=== PATIENT | female | born 1930 | race Caucasian/White ===

== ENCOUNTER 2017-08-26 17:40 | Inpatient (IN) | payer MEDICARE, BC ==
[~2017-08-26] VITALS: Ht 149.9 cm; Wt 59.2 kg
[2017-08-26] MEDS ORDERED: eye drops (17:56)
[2017-08-26] MEDS ORDERED: LISI40TA PO (17:56)
[2017-08-26] MEDS ORDERED: ONDANSETRON ODT 4 MG ONE (18:21)
[2017-08-26] MEDS ORDERED: ONDANSETRON ODT 4 MG PO ONE (18:30)
[2017-08-26 18:54] LABS: ALBUMIN 3.5 g/dL (3.4-5.0); ANION GAP 9 mmol/L (5-15); CALCIUM 8.7 mg/dL (8.5-10.1); CHLORIDE 109 mmol/L (98-107); CREATININE 1.87 mg/dL (0.55-1.02)
[2017-08-26 18:55] LABS: MEAN CORPUSCULAR HEMOGLOBIN 29.3 pg (27.0-34.8); MEAN CORPUSCULAR HGB CONC 33.6 g/dL (32.4-35.8); MEAN CORPUSCULAR VOLUME 87.3 fL (80-100); MEAN PLATELET VOLUME 8.1 fL (7.4-10.4); PLATELET COUNT 380 x10^3/uL (130-400); RED BLOOD COUNT 3.77 x10^6/uL (3.82-5.3); RED CELL DISTRIBUTION WIDTH 13.2 % (9.6-15.2)
[2017-08-26 19:17] LABS: BASOPHILS # (AUTO) 0.09 x10^3/uL (0-0.1); BASOPHILS % (AUTO) 0 % (0-1); EOSINOPHILS # (AUTO) 0.01 x10^3/uL (0-0.4); EOSINOPHILS % (AUTO) 0 % (1-7); LYMPHOCYTES # (AUTO) 0.48 x10^3/uL (1-3.4); LYMPHOCYTES % (AUTO) 2 % (22-44); MD SCAN; MONOCYTES # (AUTO) 1.03 x10^3/uL (0.2-0.8); MONOCYTES % (AUTO) 5 % (2-9); NEUTROPHILS # (AUTO) 21.44 x10^3/uL (1.8-6.8); NEUTROPHILS % (AUTO) 93 % (42-75)
[2017-08-26 19:42] LABS: MICROSCOPIC AUTO
[2017-08-26 19:44] LABS: CULTURE INDICATED? YES
[2017-08-26] MEDS ORDERED: CEFTRIAXONE PMX 1GM/50ML 50 ML IV ONE (20:00)
[2017-08-26] MEDS ORDERED: CEFTRIAXONE PMX 1GM/50ML 50 ML ONE (20:31)
[2017-08-27] MEDS ORDERED: morphine SULFATE 10 MG/ML, 1ML IVPush PRN (02:00)
[2017-08-27] MEDS ORDERED: BISACODYL 10 MG SUPP PR PRN (02:00)
[2017-08-27] MEDS ORDERED: CEFTRIAXONE PMX 1GM/50ML 50 ML IV ONE (02:00)
[2017-08-27] MEDS ORDERED: ONDANSETRON ODT 4 MG PO PRN (02:00)
[2017-08-27] MEDS ORDERED: ACETAMINOPHEN 325 MG TABLET PO PRN (02:00)
[2017-08-27] MEDS ORDERED: OXYcodone IR 5MG TABLET PO PRN (02:00)
[2017-08-27] MEDS ORDERED: ONDANSETRON 2MG/ML, 2ML IVPush PRN (02:00)
[2017-08-27] MEDS ORDERED: hydrALAzine 20 MG/ML, 1ML IVPush PRN (02:00)
[2017-08-27] MEDS ORDERED: DOCUSATE 100 MG CAPSULE PO PRN (02:00)
[2017-08-27] MEDS ORDERED: POLYETHYLENE GLYCOL 17 GM PACKET PO PRN (02:00)
[2017-08-27] MEDS ORDERED: PROMETHAZINE 25 MG/ML, 1ML IM PRN (02:00)
[2017-08-27] MEDS: HEPARIN 5,000 UNITS/ML, 1ML SQ SCH ×3 (02:10→17:56)
[2017-08-27] MEDS: SODIUM CHLORIDE 0.9% 1,000 ML IV SCH ×2 (02:10→11:44)
[2017-08-27 02:21] VITALS: BP 92/53
[2017-08-27 02:41] LABS: FREE T4 (FREE THYROXINE) 1.27 ng/dL (0.76-1.46); THYROID STIMULATING HORMONE 0.948 mIU/L (0.358-3.740)
[2017-08-27 02:45] LABS: HEMOGLOBIN A1C 5.5 % (4.2-6.3)
[2017-08-27 04:38] VITALS: BP 102/47
[2017-08-27 05:26] LABS: MEAN CORPUSCULAR HEMOGLOBIN 29.4 pg (27.0-34.8); MEAN CORPUSCULAR HGB CONC 33.3 g/dL (32.4-35.8); MEAN CORPUSCULAR VOLUME 88.2 fL (80-100); MEAN PLATELET VOLUME 7.9 fL (7.4-10.4); PLATELET COUNT 323 x10^3/uL (130-400); RED BLOOD COUNT 3.45 x10^6/uL (3.82-5.3); RED CELL DISTRIBUTION WIDTH 13.6 % (9.6-15.2)
[2017-08-27 05:37] LABS: ALANINE AMINOTRANSFERASE 11 U/L (12-78); ALBUMIN 2.9 g/dL (3.4-5.0); ANION GAP 10 mmol/L (5-15); CALCIUM 9.1 mg/dL (8.5-10.1); CHLORIDE 110 mmol/L (98-107); CHOLESTEROL, TOTAL 104 mg/dL (140-239); CREATININE 2.01 mg/dL (0.55-1.02)
[2017-08-27 05:39] LABS: ALKALINE PHOSPHATASE 56 U/L (45-117); BILIRUBIN,TOTAL 0.3 mg/dL (0.2-1.0); CHOL/HDL RATIO 2.4; HDL CHOLESTEROL (DIRECT) 44 mg/dL (40-60); TOTAL PROTEIN 6.8 g/dL (6.4-8.2); TRIGLYCERIDES 50 mg/dL (50-200); VLDL CHOLESTEROL 10 mg/dL (0-25)
[2017-08-27 05:40] LABS: HDL CHOL % 42 % (28-40); LDL CHOLESTEROL,CALCULATED 50 mg/dL (54-169); LDL/HDL RATIO 1.1 (0.5-3.0)
[2017-08-27 06:14] LABS: MD YES
[2017-08-27 06:28] LABS: BAND#(MANUAL) 0.45 x10^3/uL; BANDS%(MANUAL) 2 % (0-7); LYMPH#(MANUAL) 1.78 x10^3/uL (1-3.4); LYMPHS% (MANUAL) 8 % (22-44); MONOS#(MANUAL) 0.45 x10^3/uL (0.3-2.7); MONOS% (MANUAL) 2 % (2-9); SEG#(MANUAL) 19.62 x10^3/uL (1.8-6.8); SEGS% (MANUAL) 88 % (42-75)
[2017-08-27 06:29] LABS: <RBC MORPHOLOGY> NORMAL
[2017-08-27 06:30] LABS: <PLATELET ESTIMATE> ADEQUATE; <PLT MORPHOLOGY> NORMAL PLT MORPH
[2017-08-27 07:50] VITALS: BP 91/51
[2017-08-27 13:22] VITALS: BP 90/52
[2017-08-27] MEDS ORDERED: CEFTRIAXONE PMX 2GM/50ML 50 ML IV SCH (19:00)
[2017-08-27 19:20] VITALS: BP 96/59
[2017-08-28 00:55] VITALS: BP 105/61
[2017-08-28] MEDS: HEPARIN 5,000 UNITS/ML, 1ML SQ SCH ×2 (02:14→10:22)
[2017-08-28 04:41] LABS: CHLORIDE 114 mmol/L (98-107)
[2017-08-28 04:46] LABS: BASOPHILS # (AUTO) 0.05 x10^3/uL (0-0.1); BASOPHILS % (AUTO) 0 % (0-1); EOSINOPHILS # (AUTO) 0.29 x10^3/uL (0-0.4); EOSINOPHILS % (AUTO) 2 % (1-7); LYMPHOCYTES # (AUTO) 2.01 x10^3/uL (1-3.4); LYMPHOCYTES % (AUTO) 16 % (22-44); MD NO; MEAN CORPUSCULAR HEMOGLOBIN 29.9 pg (27.0-34.8); MEAN CORPUSCULAR VOLUME 88.1 fL (80-100); MEAN PLATELET VOLUME 8.4 fL (7.4-10.4); MONOCYTES # (AUTO) 0.67 x10^3/uL (0.2-0.8); MONOCYTES % (AUTO) 5 % (2-9); NEUTROPHILS # (AUTO) 9.43 x10^3/uL (1.8-6.8); NEUTROPHILS % (AUTO) 76 % (42-75); PLATELET COUNT 306 x10^3/uL (130-400); RED BLOOD COUNT 3.17 x10^6/uL (3.82-5.3); RED CELL DISTRIBUTION WIDTH 13.4 % (9.6-15.2)
[2017-08-28 04:47] LABS: ANION GAP 9 mmol/L (5-15); CALCIUM 8.6 mg/dL (8.5-10.1); CREATININE 1.55 mg/dL (0.55-1.02)
[2017-08-28 09:10] VITALS: BP 100/66
[2017-08-28] MEDS ORDERED: CEPH-368 PO (12:52)
[2017-08-28 14:57] VITALS: BP 126/55
== END 2017-08-28 16:16 | disposition home or self-care (01) | DRG 871 ==
LOC: ED 19:44 → EDIP 21:35 → 3NE 23:30
PROVIDERS: ADMIT Internal Medicine; ATTEND Internal Medicine
DX: A41.9 Sepsis, unspecified organism (principal); N17.0 Acute kidney failure with tubular necrosis; J15.9 Unspecified bacterial pneumonia; E87.2 Acidosis; N10 Acute pyelonephritis; D64.9 Anemia, unspecified; I12.9 Hypertensive chronic kidney disease with stage 1 through stage 4 chronic kidney disease, or unspecified chronic kidney disease; H40.9 Unspecified glaucoma; N18.9 Chronic kidney disease, unspecified; Z90.710 Acquired absence of both cervix and uterus; B96.1 Klebsiella pneumoniae [K. pneumoniae] as the cause of diseases classified elsewhere; K57.30 Diverticulosis of large intestine without perforation or abscess without bleeding
CPT/HCPCS: 36415; 74176; 80048; 80053; 80061; 81001; 82040; 83036; 83735; 84439; 84443; 85025; 87040; 87077; 87086; 87186; 96374; J0696; J1644; Q0162; J7030